=== PATIENT | male | born 1990 | race Caucasian/White ===

== ENCOUNTER 2023-04-15 02:44 | Emergency (ER) | payer OTHER, SELFPAY ==
[2023-04-15 02:49] VITALS: BP 111/78; PULSE 92; RESP 18; TEMP 35.9; O2SAT 96
--- NOTE | 2023-04-15 03:13 | ED.GENADULT ---
HPI - General Adult General Chief complaint: Extremity Pain/Injury, Lower Stated complaint: Infection on L foot Time Seen by Provider: 04/15/23 02:46 Source: patient Mode of arrival: ambulatory History of Present Illness HPI narrative: 32-year-old male with no significant medical history presents the emergency department with worsening pain in the lateral left foot area. Patient reports that he had blisters from a new pair of shoes on the outer foot near the base of the 5th metatarsal last week, these have popped and now he has had redness, drainage and now pain shooting down into his pinky toe and up the side of his leg near the fibula tonight. He does note some swelling. No fevers or shaking chills. He does have some mild nausea. Appetite has been normal. He tried applying some sort of charcoal sat of recommended by his with no significant improvement. He took some ibuprofen about 7 hours ago with some limited temporary improvement. No specific trauma or injury. He is not immunocompromised, takes no anticoagulants. He can flex and move the ankle joint though it is painful. No prior history of cellulitis or similar infection or surgery in the area. Past medical history benign, no major long-term health problems. No long-term prescription medications, no allergies. Nonsmoker. No history of vascular disease ROS notable for the musculoskeletal, neurological in generalized symptoms as above, otherwise denies times 12 systems. Related Data Home Medications Medication Instructions Recorded Confirmed No Known Home Medications 04/15/23 04/15/23 Allergies Allergy/AdvReac Type Severity Reaction Status Date / Time No Known Drug Allergies Allergy Verified 04/15/23 02:52 Exam Const: Vital Signs, click to edit/add: Vital Signs - 24 hr 04/15/23 02:49 Temperature 96.7 F L Pulse Rate [Left P ulse Oximeter] 92 Respiratory Rate 18 Blood Pressure [Ri ght Upper Arm] 111/78 Pulse Oximetry 96 Oxygen Delivery Me thod Room Air Documenting provider has reviewed patient's vital signs: yes Common normals: no apparent distress General appearance: cooperative Other: Excellent historian, appears well-nourished, well-hydrated, not intoxicated HENMT: Common normals: normocephalic Head and scalp: normocephalic Face and sinus: normal facial exam Mouth: oral and palatal mucosa normal Eye: Other: Normal appearance of eyes, normal eye contact and gaze Resp: Common normals: normal respiratory effort, no use of accessory muscles and clear to auscultation bilaterally Effort & inspection: able to speak in complete sentences Auscultation: clear to auscultation bilaterally Cardio: Common normals: regular rate, regular rhythm, S1 normal heart sound, S2 normal heart sound and no murmurs Rate: regular rate Rhythm: regular rhythm Heart sounds: S1 normal and S2 normal Extremity: Other: Right lower extremity appears grossly normal. Left lower extremity shows normal toes. There are 3 distinct blisters on the lateral left dorsum of the foot. They range in size from 1-2 cm. Granulating slightly purulent appearing tissue underneath. No visible bone or necrosis. Mild surrounding redness and very mild swelling, surrounding a total area of about 4-5 cm, encompassing all 3 small blisters. No redness or streaking up the leg. No tenderness of the malleoli, base of the 5th metatarsal. He has full range of motion of the ankle joint and moves the knee without complication. Arch of the foot and medial foot are not affected. Neuro: Motor exam: strength 5/5 throughout and no movement abnormalities noted Psych: Attitude: engaged Activity/motor behavior: appropriate eye contact Skin: Narrative: Blistery lesions as above on left foot, no other affected areas. Course Course Hospital Course: Vital signs stable. Afebrile with no signs of sepsis. Do not recommend blood work or x-ray. No trauma or injury. No signs of systemic symptoms that would warrant IV treatment for his cellulitis. Differential diagnosis including tendinitis, occult fracture, cellulitis, abscess, joint infection. Evidence of mild cellulitis based on clinical exam and symptoms. Discussed how typical course of illness and healing occur. Start doxycycline 100 mg p.o. b.i.d. for 10 days. Discussed Tylenol and ibuprofen for pain control, okay to use gentle [id number] sleep aids. Risks of narcotics generally outweigh benefits. Tylenol given in ED. Started on doxycycline, [facility]. Outpatient appointment if not starting to improve in 48 hours. Rest, compression and elevation discussed. He verbalizes understanding and agreement. Reviewed alarm symptoms and he has no further questions. Vital Signs Vital signs: Initial Vital Signs Temperature 96.7 F L 04/15/23 02:49 Temperature Source Temporal Artery Scan 04/15/23 02:49 Pulse Rate 92 08/18/23 02:49 Pulse Rhythm Regular 04/15/23 02:49 Respiratory Rate 18 04/15/23 02:49 Blood Pressure 111/78 04/15/23 02:49 Blood Pressure Mean 89 04/15/23 02:49 Blood Pressure Position Sitting 04/15/23 02:49 Pulse Oximetry 96 04/15/23 02:49 Oxygen Delivery Method Room Air 04/15/23 02:49 Vital Signs Temperature 96.7 F L 04/15/23 02:49 Pulse Rate 92 04/15/23 02:49 Respiratory Rate 18 04/15/23 02:49 Blood Pressure 111/78 04/15/23 02:49 Pulse Oximetry 96 04/15/23 02:49 Oxygen Delivery Method Room Air 04/15/23 02:49 Temperature 96.7 F L 04/15/23 02:49 Pulse Rate 92 04/15/23 02:49 Respiratory Rate 18 04/15/23 02:49 Blood Pressure 111/78 04/15/23 02:49 Pulse Oximetry 96 04/15/23 02:49 Oxygen Delivery Method Room Air 04/15/23 02:49 Discharge Plan Discharge Clinical Impression: Cellulitis of foot Patient Disposition: Home w/ Parent or Adult Condition: Stable Instructions: Cellulitis (ED) Additional Instructions: As we discussed, there does seem to be a mild infection setting in. These are fairly common. There do not seem to be any dangerous signs of infection spreading into the tendons or into the joint space. This is reassuring. My nurses have cleanse the wound and applied antibiotic ointment and a covering. Try to leave this on for the 1st 24 hours. After that, you may gently remove, cleanse with soap and water, reapply antibiotic ointment and a new large Band-Aid once daily. As we discussed, nerves tend to be more reactive at night causing that burning and stinging shooting pain that you are having. This is because that superficial nerve runs so closely to the skin and is affected by the swelling and inflammation from the infection. I recommend Tylenol and ibuprofen for pain control. Proper dosing of Tylenol is 1000 mg every 6 hours, your given a dose before leaving the ED. Proper dosing of ibuprofen is 600 mg every 6 hours, you would be eligible to take a dose of this as soon as you get home. As we discussed, the nerves tend to hurt more at night and therefore sleep aids such as Tylenol p.m., plain Benadryl, Unisom or melatonin can be helpful if you need assistance in sleeping. This is safer than using stronger pain medication. The infection may worsen for the 1st 24 hours meaning become more red and or swollen. It should start to improve after those initial 24 hours. If you are not noting any improvement after 48 hours on antibiotics, you should make an appointment to have things re-evaluated in the clinic. As we discussed also, if you are having high fevers, shaking chills or are so weak that you cannot get from her bed to the bathroom, you should come back to the emergency department. Low-grade fevers would be considered normal in this infection fighting process but should be gone within 48 hours of antibiotics. Elevate and rest for tomorrow. Activity Level: Activity as Tolerated Discharge Diet: Regular Prescriptions: No Action No Known Home Medications Stand Alone Forms: [employer] Info Instructions
[2023-04-15] MEDS: ACETAMINOPHEN 500 MG TABLET 1000 MG PO (03:26)
== END 2023-04-15 03:30 | disposition home or self-care (01) ==
LOC: ED 03:17
PROVIDERS: Emergency Provider Family Medicine
DX: L03.116 Cellulitis of left lower limb (principal)
CPT/HCPCS: 99283; A9270